=== PATIENT | male | born 1995 | race Caucasian/White ===

== ENCOUNTER 2017-04-13 16:04 | Emergency (ER) | payer SELFPAY ==
[~2017-04-13] VITALS: Ht 172.7 cm; Wt 59.7 kg
[2017-04-13 16:07] VITALS: BP 150/98
[2017-04-13] MEDS ORDERED: NARCAN4 MG NS (17:10)
== END 2017-04-13 17:39 | disposition home or self-care (01) ==
LOC: EME 16:04
DX: T40.1X1A Poisoning by heroin, accidental (unintentional), initial encounter (principal); F17.200 Nicotine dependence, unspecified, uncomplicated; Z88.7 Allergy status to serum and vaccine
CPT/HCPCS: 99281; 99284; J2310